=== PATIENT | female | born 1960 | race Native Hawaiian/Other Pacific Islander ===

== ENCOUNTER 2016-10-23 13:46 | Emergency (ER) | payer MEDICAID ==
[2016-10-23 14:06] VITALS: TEMP 98.1
[2016-10-23 14:26] LABS: % IMMATURE GRANULYOCYTES 0.2 % (0.0-1.1); ABSOLUTE IMMATURE GRANULOCYTES 0.01 10^3/uL (0.00-0.10); ADD DIFF? NO; ADD MORPH? NO; ADD SCAN? NO; ATYPICAL LYMPHOCYTE FLAG 10 (0-99); FRAGMENT RBC FLAG 0 (0-99); HEMATOCRIT 45.9 % (38.0-47.0); HEMOGLOBIN 15.7 g/dL (12.6-16.3); LEFT SHIFT FLG 0 (0-99); LIPEMIA HEMOLYSIS FLAG 90 (0-99); MEAN CELL HEMOGLOBIN 31.6 pg (27.9-34.1); MEAN CELL HEMOGLOBIN CONCENTR. 34.2 g/dL (32.4-36.7); MEAN CELL VOLUME 92.4 fL (81.5-99.8); MEAN PLATELET VOLUME 10.3 fL (8.7-11.7); PLATELET CLUMPS FLAG 0 (0-99); PLATELET COUNT 249 10^3/uL (150-400); RED BLOOD CELL COUNT 4.97 10^6/uL (4.18-5.33); RED CELL DISTRIBUTION WIDTH 11.7 % (11.5-15.2)
[2016-10-23 14:41] LABS: ALANINE AMINOTRANSFERASE 37 IU/L (9-52); ALBUMIN 4.4 g/dL (3.5-5.0); ALKALINE PHOSPHATASE 86 IU/L (38-126); ANION GAP 18 mEq/L (8-16); ASPARTATE AMINOTRANSFERASE 26 IU/L (14-46); BILIRUBIN,TOTAL 0.6 mg/dL (0.1-1.4); CALCIUM 9.3 mg/dL (8.5-10.4); CARBON DIOXIDE 25 mEq/l (22-31); CHLORIDE 101 mEq/L (97-110); CREATININE 0.5 mg/dL (0.6-1.0); GLOMERULAR FILTRATION RATE > 60; GLUCOSE 97 mg/dL (70-100); POTASSIUM 3.9 mEq/L (3.5-5.2); SODIUM 144 mEq/L (134-144); TOTAL PROTEIN 7.9 g/dL (6.3-8.2)
--- NOTE | 2016-10-23 14:49 | CPEKG ---
Heart Rate: 126 RR Interval: 476 P-R Interval: 132 QRSD Interval: 68 QT Interval: 328 QTC Interval: 475 P [place]: 40 QRS [place]: 62 T Wave [place]: 12 EKG Severity - OTHERWISE NORMAL ECG - EKG Impression: SINUS TACHYCARDIA Electronically Signed By: Du Garcia 23-Oct-2016 15:02:04
[2016-10-23 14:57] LABS: TROPONIN I < 0.012 ng/mL (0-0.034)
[2016-10-23] MEDS ORDERED: METOPROLOL TARTRATE 5 MG/5 ML INJ IVP ONE (15:09)
--- NOTE | 2016-10-23 15:16 | UCPHY ---
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 Time Seen by Provider: 10/23/16 13:59 HPI/ROS: This patient reports racing heart that occurred shortly prior to arrival-within the hour while seated at home. She admits increasing stress recently that is familial related social stress. She has no other associated symptoms. However she does have a history of previous SVT with ablation. Concerned about potential recurrent she came in for evaluation. She has no other associated symptoms. ROS: No recent fevers or chills. No significant fatigue. No other constitutional symptoms. HEENT: No recent URI symptoms. No other complaints neuro: No headache. No focal numbness tingling weakness pulmonary: No dyspnea cardiovascular: No chest pain. No lower extremity swelling or calf pain. No lightheadedness. GI: No nausea vomiting diaphoresis : No complaints integumentary: No skin rash. 10 point ROS is otherwise negative. Source: Patient Exam Limitations: No limitations - Personal History Current Tetanus Diphtheria and Acellular Pertussis (TDAP): Yes - Medical/Surgical History Hx Asthma: No Hx Chronic Respiratory Disease: No Hx Diabetes: No Hx Cardiac Disease: No Hx Renal Disease: No Hx Cirrhosis: No Hx Alcoholism: No Hx HIV/AIDS: No Hx Splenectomy or Spleen Trauma: No Other PMH: pyelonephritis, kidney stone,csection. appendectomy. uterine ablation. cardiac ablation. migraines - Family History Significant Family History: No pertinent family hx - Social History Smoking Status: Never smoked Alcohol Use: None Drug Use: None - Physical Exam Exam: Vital signs: Initial triage had an erroneous blood pressure of 137/117 on a manual recheck was 140/74. Pulse of 126 other vitals normal General Appearance: Alert, no distress. Eyes: Pupils equal and round no pallor or injection. ENT, Mouth: Mucous membranes moist. Respiratory: There are no retractions, lungs are clear to auscultation. Cardiovascular: Tachycardic and regular with no murmur gallop or rub. Gastrointestinal: Abdomen is soft and nontender, no masses, bowel sounds normal. Neurological: Alert with no focal sensory motor deficits Skin: Warm and dry, no rashes. Musculoskeletal: Neck is supple nontender. Extremities are symmetrical, full range of motion. No leg swelling or tenderness Psychiatric: Mood: Mildly anxious otherwise normal affect DIFFERENTIAL DIAGNOSIS: After history and physical exam differential diagnosis was considered for sinus tachycardia, SVT, anxiety, dehydration, thyroid disease , metabolic disarray Constitutional: Initial Vital Signs Temperature (C) 36.7 C 10/23/16 14:01 Heart Rate 125 H 10/23/16 14:01 Respiratory Rate 20 10/23/16 14:01 Blood Pressure 137/117 H 10/23/16 14:01 O2 Sat (%) 96 10/23/16 14:01 O2 Delivery Mode Room Air Allergies/Adverse Reactions: Sulfa (Sulfonamide Antibiotics) Allergy (Intermediate, Verified 10/23/16 14:01) lidocaine Allergy (Verified 10/23/16 14:01) topiramate [From Topamax] Allergy (Verified 10/23/16 14:01) contrast dye Allergy (Uncoded 10/23/16 14:01) Home Medications: Medication Instructions Recorded Nortriptyline HCl 05/10/15 SUMAtriptan [Imitrex 50 MG (RX)] 50 - 100 mg PO Q2H PRN #6 tab 05/20/15 Cyclobenzaprine 03/07/16 Ketorolac Tromethamine [Toradol] 10 mg PO Q6H PRN #16 tab 03/07/16 Medical Decision Making - Diagnostics EKG Interpretation: 12 lead EKG performed shortly after arrival reveals sinus tachycardia at 1:26 a.m.. Overall assessment sinus tachycardia otherwise normal EKG For complete read please refer to trace master ED Course/Re-evaluation: Studies: CBC is normal, chemistries normal, troponin normal, TSH normal IV normal saline bolus with mild improvement in tachycardia to 117. Lopressor 5 mg IV with further reduction and final resolution of tachycardia to a rate in the 90s. Patient feels comfortable. Discussion: Patient has sinus tachycardia is likely related to social stressors and caffeine. Counseled regarding this. I after workup, no evidence of coronary syndrome, SVT, thyroid disease or metabolic disarray. Also no evidence of anemia or other concerning findings. - Data Points Laboratory Results: Laboratory Results 10/23/16 14:18 10/23/16 14:18 10/23/16 10/23/16 10/23/16 14:20 14:18 14:18 WBC 5.33 10^3/uL 10^3/uL (3.80-9.50) RBC 4.97 10^6/uL 10^6/uL (4.18-5.33) Hgb 15.7 g/dL g/dL (12.6-16.3) Hct 45.9 % % (38.0-47.0) MCV 92.4 fL fL (81.5-99.8) MCH 31.6 pg pg (27.9-34.1) MCHC 34.2 g/dL g/dL (32.4-36.7) RDW 11.7 % % (11.5-15.2) Plt Count 249 10^3/uL 10^3/uL (150-400) MPV 10.3 fL fL (8.7-11.7) Neut % (Auto) 62.1 % % (39.3-74.2) Lymph % (Auto) 27.8 % % (15.0-45.0) Humphreys % (Auto) 7.9 % % (4.5-13.0) Eos % (Auto) 0.9 % % (0.6-7.6) Baso % (Auto) 1.1 % % (0.3-1.7) Nucleat RBC Rel Count 0.0 % % (0.0-0.2) Absolute Neuts (auto) 3.31 10^3/uL 10^3/uL (1.70-6.50) Absolute Lymphs (auto) 1.48 10^3/uL 10^3/uL (1.00-3.00) Absolute Monos (auto) 0.42 10^3/uL 10^3/uL (0.30-0.80) Absolute Eos (auto) 0.05 10^3/uL 10^3/uL (0.03-0.40) Absolute Basos (auto) 0.06 10^3/uL 10^3/uL (0.02-0.10) Absolute Nucleated RBC 0.00 10^3/uL 10^3/uL (0-0.01) Immature Gran % 0.2 % % (0.0-1.1) Immature Gran # 0.01 10^3/uL 10^3/uL (0.00-0.10) Sodium 144 mEq/L mEq/L (134-144) Potassium 3.9 mEq/L mEq/L (3.5-5.2) Chloride 101 mEq/L mEq/L (97-110) Carbon Dioxide 25 mEq/l mEq/l (22-31) Anion Gap 18 mEq/L H mEq/L (8-16) BUN 10 mg/dL mg/dL (7-23) Creatinine 0.5 mg/dL L mg/dL (0.6-1.0) Estimated GFR > 60 Glucose 97 mg/dL mg/dL (70-100) Calcium 9.3 mg/dL mg/dL (8.5-10.4) Total Bilirubin 0.6 mg/dL mg/dL (0.1-1.4) AST 26 IU/L IU/L (14-46) ALT 37 IU/L IU/L (9-52) Alkaline Phosphatase 86 IU/L IU/L (38-126) Troponin I < 0.012 ng/mL ng/mL (0-0.034) Total Protein 7.9 g/dL g/dL (6.3-8.2) Albumin 4.4 g/dL g/dL (3.5-5.0) TSH 2.190 uIU/mL uIU/mL (0.465-4.680) Medications Given: Discontinued Medications Metoprolol Tartrate (Lopressor Injection) 5 mg IVP EDNOW ONE Stop: 10/23/16 15:10 Last Admin: 10/23/16 15:23 Dose: 5 mg Departure - Departure Disposition: Home, Routine, Self-Care Clinical Impression: Sinus tachycardia Condition: Good Additional Instructions: Diagnosis: Sinus tachycardia Plan: Drink plenty fluids 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
[2016-10-23 15:42] VITALS: BP 133/97; PULSE 94; RESP 17; O2SAT 97
== END 2016-10-23 15:47 | disposition home or self-care (01) ==
LOC: CED 13:46
DX: R00.0 Tachycardia, unspecified (principal); N12 Tubulo-interstitial nephritis, not specified as acute or chronic; Z86.79 Personal history of other diseases of the circulatory system
CPT/HCPCS: 80053-PO; 84443-PO; 84484-PO; 85025-PO; 93010-PO; 96361-PO; 96374-PO; 99215-PO; G0463-PO

== ENCOUNTER 2016-12-04 11:42 | Emergency (ER) | payer MEDICAID ==
[2016-12-04 11:56] VITALS: RESP 14; TEMP 98.1
--- NOTE | 2016-12-04 12:02 | CPEKG ---
Heart Rate: 109 RR Interval: 550 P-R Interval: 144 QRSD Interval: 70 QT Interval: 352 QTC Interval: 475 P [place]: 74 QRS [place]: 57 T Wave [place]: 36 EKG Severity - OTHERWISE NORMAL ECG - EKG Impression: SINUS TACHYCARDIA Electronically Signed By: Deborah Beckett 05-Dec-2016 10:00:39
[2016-12-04 12:35] LABS: % IMMATURE GRANULYOCYTES 0.2 % (0.0-1.1); ABSOLUTE IMMATURE GRANULOCYTES 0.01 10^3/uL (0.00-0.10); ADD DIFF? NO; ADD MORPH? NO; ADD SCAN? NO; ATYPICAL LYMPHOCYTE FLAG 10 (0-99); FRAGMENT RBC FLAG 0 (0-99); HEMATOCRIT 45.3 % (38.0-47.0); HEMOGLOBIN 15.3 g/dL (12.6-16.3); LEFT SHIFT FLG 0 (0-99); LIPEMIA HEMOLYSIS FLAG 90 (0-99); MEAN CELL HEMOGLOBIN 31.2 pg (27.9-34.1); MEAN CELL HEMOGLOBIN CONCENTR. 33.8 g/dL (32.4-36.7); MEAN CELL VOLUME 92.4 fL (81.5-99.8); MEAN PLATELET VOLUME 9.7 fL (8.7-11.7); PLATELET CLUMPS FLAG 0 (0-99); PLATELET COUNT 301 10^3/uL (150-400); RED CELL DISTRIBUTION WIDTH 11.9 % (11.5-15.2)
[2016-12-04] MEDS ORDERED: NS 1,000 ML IV ONE (12:47)
[2016-12-04 12:51] LABS: ANION GAP 17 mEq/L (8-16); CALCIUM 9.3 mg/dL (8.5-10.4); CARBON DIOXIDE 24 mEq/l (22-31); CHLORIDE 104 mEq/L (97-110); CREATININE 0.4 mg/dL (0.6-1.0); GLOMERULAR FILTRATION RATE > 60; GLUCOSE 97 mg/dL (70-100); POTASSIUM 4.1 mEq/L (3.5-5.2); SODIUM 145 mEq/L (134-144)
[2016-12-04 12:53] LABS: MAGNESIUM 2.1 mg/dL (1.6-2.3)
[2016-12-04 12:54] LABS: INR 0.96 (0.83-1.16); PROTIME(PATIENT) 12.5 SEC (12.0-15.0)
[2016-12-04 12:55] LABS: APTT 33.6 SEC (23.0-38.0)
[2016-12-04 12:58] LABS: TROPONIN I < 0.012 ng/mL (0-0.034)
--- NOTE | 2016-12-04 13:45 | EDPHY ---
H & P Stated Complaint: 929 started with "racing heart"; improve w aspirin; gen "not feeling well" Time Seen by Provider: 12/04/16 11:49 HPI/ROS: 56-year-old female with prior history of SVT with ablation approximately 4-5 years ago presents complaining of her heart racing this morning. She had driven to [place] for for an appointment and began feeling her heart racing upon parking as a building in [place] she ended up having to cancel her appointment because she hear her heart was racing she felt very fatigued and clammy. She denies chest pain, she denies leg pain or leg swelling. She states last night she did have a migraine and probably did not eat or drink very much yesterday. She has a history of chronic migraines She states this morning she had her regular cup of coffe.e, but otherwise has had no meals today Review of systems As per HPI General no fever no chills no weakness, positive fatigue HEENT no eye pain no eye discharge. No eye redness, no sore throat Respiratory no cough, no shortness of breath Cardiac no chest pain, no peripheral edema, positive palpitations GI no abdominal pain, no diarrhea, no constipation, no nausea, no vomiting no flank pain, no hematuria, no dysuria Musculoskeletal no myalgias, no joint pain Heme no easy bruising, no easy bleeding Endo no polyuria, no polydipsia Skin no rashes, no pruritus Neuro no syncope, no dizziness, no headaches Psych is no suicidal ideation, no homicidal ideation Source: Patient Exam Limitations: No limitations - Personal History Current Tetanus/Diphtheria Vaccine: Yes Current Tetanus Diphtheria and Acellular Pertussis (TDAP): Yes - Medical/Surgical History Hx Asthma: No Hx Chronic Respiratory Disease: No Hx Diabetes: No Hx Cardiac Disease: No Hx Renal Disease: No Hx Cirrhosis: No Hx Alcoholism: No Hx HIV/AIDS: No Hx Splenectomy or Spleen Trauma: No Other PMH: pyelonephritis, kidney stone,csection. appendectomy. uterine ablation. cardiac ablation. migraines - Family History Significant Family History: No pertinent family hx - Social History Smoking Status: Never smoked Alcohol Use: Rarely Drug Use: None - Physical Exam Exam: 56-year-old female alert and oriented no acute distress nontoxic appearance, afebrile HEENT atraumatic normocephalic, extraocular muscles intact, anicteric Oropharynx negative for erythema negative exudate, tolerating her own secretions Neck supple no meningismus Lungs clear to auscultation bilaterally Heart regular rate and rhythm without murmur rub or gallop, heart rate approximately 100 on exam Abdomen nondistended normoactive bowel sounds soft nontender Back no CVA tenderness, no step-offs, no spinal tenderness Extremities no cyanosis clubbing or edema Neuro alert and oriented, no focal deficits Constitutional: Initial Vital Signs Temperature (C) 36.7 C 12/04/16 11:53 Heart Rate 108 H 12/04/16 11:53 Respiratory Rate 14 12/04/16 11:53 Blood Pressure 140/98 H 12/04/16 11:53 O2 Sat (%) 93 12/04/16 11:53 O2 Delivery Mode Room Air Allergies/Adverse Reactions: Sulfa (Sulfonamide Antibiotics) Allergy (Intermediate, Verified 12/04/16 11:49) lidocaine Allergy (Verified 12/04/16 11:49) topiramate [From Topamax] Allergy (Verified 12/04/16 11:49) contrast dye Allergy (Uncoded 10/23/16 14:01) Home Medications: Medication Instructions Recorded Nortriptyline HCl 05/10/15 SUMAtriptan [Imitrex 50 MG (RX)] 50 - 100 mg PO Q2H PRN #6 tab 05/20/15 Cyclobenzaprine 03/07/16 Medical Decision Making ED Course/Re-evaluation: Medical decision making and ER course Patient seen and evaluated for palpitations, heart racing earlier today. 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 Increase fluids - Data Points Laboratory Results: Laboratory Results 12/04/16 12:25 12/04/16 12:25 12/04/16 12/04/16 12/04/16 12:25 12:25 12:25 WBC RBC Hgb Hct MCV MCH MCHC RDW Plt Count MPV Neut % (Auto) Lymph % (Auto) Grant % (Auto) Eos % (Auto) Baso % (Auto) Nucleat RBC Rel Count Absolute Neuts (auto) Absolute Lymphs (auto) Absolute Monos (auto) Absolute Eos (auto) Absolute Basos (auto) Absolute Nucleated RBC Immature Gran % Immature Gran # PT 12.5 SEC SEC (12.0-15.0) INR 0.96 (0.83-1.16) APTT 33.6 SEC SEC (23.0-38.0) D-Dimer 0.50 ug/mLFEU ug/mLFEU (0.00-0.50) Sodium 145 mEq/L H mEq/L (134-144) Potassium 4.1 mEq/L mEq/L (3.5-5.2) Chloride 104 mEq/L mEq/L (97-110) Carbon Dioxide 24 mEq/l mEq/l (22-31) Anion Gap 17 mEq/L H mEq/L (8-16) BUN 8 mg/dL mg/dL (7-23) Creatinine 0.4 mg/dL L mg/dL (0.6-1.0) Estimated GFR > 60 Glucose 97 mg/dL mg/dL (70-100) Calcium 9.3 mg/dL mg/dL (8.5-10.4) Magnesium 2.1 mg/dL mg/dL (1.6-2.3) Troponin I < 0.012 ng/mL ng/mL (0-0.034) TSH 1.170 uIU/mL uIU/mL (0.465-4.680) 12/04/16 12:25 WBC 5.37 10^3/uL 10^3/uL (3.80-9.50) RBC 4.90 10^6/uL 10^6/uL (4.18-5.33) Hgb 15.3 g/dL g/dL (12.6-16.3) Hct 45.3 % % (38.0-47.0) MCV 92.4 fL fL (81.5-99.8) MCH 31.2 pg pg (27.9-34.1) MCHC 33.8 g/dL g/dL (32.4-36.7) RDW 11.9 % % (11.5-15.2) Plt Count 301 10^3/uL 10^3/uL (150-400) MPV 9.7 fL fL (8.7-11.7) Neut % (Auto) 73.6 % % (39.3-74.2) Lymph % (Auto) 15.6 % % (15.0-45.0) Grant % (Auto) 8.9 % % (4.5-13.0) Eos % (Auto) 0.6 % % (0.6-7.6) Baso % (Auto) 1.1 % % (0.3-1.7) Nucleat RBC Rel Count 0.0 % % (0.0-0.2) Absolute Neuts (auto) 3.95 10^3/uL 10^3/uL (1.70-6.50) Absolute Lymphs (auto) 0.84 10^3/uL L 10^3/uL (1.00-3.00) Absolute Monos (auto) 0.48 10^3/uL 10^3/uL (0.30-0.80) Absolute Eos (auto) 0.03 10^3/uL 10^3/uL (0.03-0.40) Absolute Basos (auto) 0.06 10^3/uL 10^3/uL (0.02-0.10) Absolute Nucleated RBC 0.00 10^3/uL 10^3/uL (0-0.01) Immature Gran % 0.2 % % (0.0-1.1) Immature Gran # 0.01 10^3/uL 10^3/uL (0.00-0.10) PT INR APTT D-Dimer Sodium Potassium Chloride Carbon Dioxide Anion Gap BUN Creatinine Estimated GFR Glucose Calcium Magnesium Troponin I TSH Medications Given: Discontinued Medications Sodium Chloride (Ns) 1,000 mls @ 0 mls/hr IV ONCE ONE PRN Reason: Wide Open Stop: 12/04/16 12:48 Last Admin: 12/04/16 12:50 Dose: 1,000 mls Departure - Departure Disposition: Home, Routine, Self-Care Clinical Impression: Palpitations, Dehydration, mild Condition: Good Instructions: Palpitations (ED) Referrals: Melissa Montague MD [Primary Care Provider] - As per Instructions
[2016-12-04 14:39] VITALS: BP 129/97; PULSE 95; O2SAT 94
== END 2016-12-04 14:39 | disposition home or self-care (01) ==
LOC: CED 11:42
DX: R00.2 Palpitations (principal); E86.0 Dehydration
CPT/HCPCS: 80048-PO; 83735-PO; 84443-PO; 84484-PO; 85025-PO; 85378-PO; 85610-PO; 85730-PO